=== PATIENT | female | born 1960 | race Caucasian/White ===

== ENCOUNTER 2022-01-08 11:41 | Outpatient (CLI) | payer BC, SELFPAY ==
[2022-01-08 13:10] VITALS: BP 112/71; PULSE 91; RESP 18; TEMP 36.4; O2SAT 97
[2022-01-08 14:03] VITALS: BP 101/58; PULSE 80; RESP 18; TEMP 36.3; O2SAT 94
== END 2022-01-08 11:42 | disposition home or self-care (01) ==
LOC: INF 11:54
PROVIDERS: PCP Internal Medicine; Visit Provider Family Medicine
DX: U07.1 COVID-19 (principal)
CPT/HCPCS: 96374; Q0222